=== PATIENT | female | born 1960 | race African-American/Black ===

== ENCOUNTER 2023-09-09 10:01 | Emergency (ER) | payer OTHER ==
[~2023-09-09] VITALS: Ht 157.5 cm; Wt 50.0 kg
[2023-09-09 10:07] VITALS: O2SAT 98
[2023-09-09] MEDS ORDERED: DEXTROSE 50% WATER 50ML SYRINGE IV ONE ×2 (11:38→11:45)
[2023-09-09 14:28] VITALS: BP 181/76; PULSE 65; RESP 16; TEMP 98.6
== END 2023-09-09 14:31 | disposition home or self-care (01) ==
LOC: ER 10:01
DX: E11.649 Type 2 diabetes mellitus with hypoglycemia without coma (principal); I10 Essential (primary) hypertension
CPT/HCPCS: 82962; 96374; 99291; Z7610